=== PATIENT | female | born 1975 | race African-American/Black ===

== ENCOUNTER → 2018-06-10 | Day surgery (SDC) | payer OTHER ==
--- NOTE | 2018-06-10 11:55 | OP ---
DATE OF OPERATION: 06/10/2018 PREOPERATIVE DIAGNOSIS: Abnormal right mammography. POSTOPERATIVE DIAGNOSIS: Abnormal right mammography. PROCEDURE: Right stereotactic needle biopsy with clips. SURGEON: Pam Quiñones MD ANESTHESIA: Local. COMPLICATIONS: None. This was a sterile procedure. INDICATION FOR PROCEDURE: Patient presented with a screening mammogram that noted a cluster of microcalcifications in the upper outer right breast. My recommendation was needle biopsy. The procedure discussed with all the questions answered. PROCEDURE IN DETAIL: Patient brought to [facility] in [place], laid prone on the [place] table. Using the cranial approach the calcifications in the upper outer right breast were identified. A sterile prep obtained. A target was chosen. There was a positive stroke margin. Using Betadine and 1% lidocaine a 10-gauge Suros device was used to take several cores from this area. Cores showed calcifications within them. These were handled using calcification protocol. A clip was deployed in the area. Hemostasis assured with direct pressure. Steri-Strips were used to close the incision. She tolerated the procedure well and left the breast room in stable and good condition. PAM QUIÑONES M.D. [id number]
--- NOTE | 2018-06-11 13:13 | PATH ---
Surgical Pathology Report Patient Name: SAMEERA BRYANT [facility]. Rec. #: [id number] /Age/Gender: 1975 (Age: 43) / F Account: [id number] Location: [facility] Taken: 06/10/2018 Received: 06/10/2018 Reported: 06/11/2018 Physicians: Pam Diamond M.D. Specimen(s) Received A: RIGHT BREAST SPECIMEN WITH CALCIFICATIONS B: RIGHT BREAST SPECIMEN WITHOUT CALCIFICATIONS Clinical History Nonpalpable lesion Mammographic findings: Microcalcification, suspicious Final Diagnosis A. BREAST, RIGHT, WITH CALCIFICATIONS, STEREOTACTIC BIOPSY: BENIGN BREAST TISSUE SHOWING SCLEROSED FIBROADENOMA WITH ASSOCIATED STROMAL CALCIFICATIONS. B. BREAST, RIGHT, WITHOUT CALCIFICATIONS, STEREOTACTIC BIOPSY: BENIGN BREAST TISSUE SHOWING SCANT FRAGMENT OF FIBROADENOMA. Electronically Signed Jaki Guan M.D. Gross Description A. Received in formalin labeled "right breast with calcifications," is a 2.0 x 1.6 x 0.3 cm aggregate of multiple campos, irregular to cylindrical portions of fibroadipose tissue. The formalin is filtered and the specimen is entirely submitted in one cassette. B. Received in formalin labeled "right breast without calcifications," is a 3.3 x 2.7 x 0.3 cm aggregate of campos-yellow, irregular to cylindrical portions of fibroadipose tissue. The formalin is filtered and the specimen is entirely submitted in 2 cassettes. Time to formalin fixation: 5 minutes Total formalin fixation time: approximately 7 hours. /06/10/2018 saudi06/10/2018
== END | disposition home or self-care (01) ==
LOC: FMAMMOTONE 09:51 → EDSTATUS 10:00
PROVIDERS: ATTEND Surgery
PROC: 0HBT3ZX Excision of Right Breast, Percutaneous Approach, Diagnostic (ICD-10-PCS; principal; 2018-06-10)
DX: D24.1 Benign neoplasm of right breast (principal); N64.89 Other specified disorders of breast; R92.8 Other abnormal and inconclusive findings on diagnostic imaging of breast
CPT/HCPCS: 19081; 87899; 88305-TC; A4648